=== PATIENT | male | born 1955 | race Hispanic/Latino ===

== ENCOUNTER 2017-10-14 14:05 | Emergency (ER) | payer BC ==
[2017-10-14] MEDS ORDERED: LIDOCAINE 1% MPF 5 ML VIAL ONE (14:51)
[2017-10-14 14:58] LABS: Absolute Lymphocytes (CBC) 0.9 K/uL (0.7-4.9); Absolute Monocytes 0.7 K/uL (0.1-1.3); Absolute Neutrophil 7.1 K/uL (1.8-8.0); Basophils % 0.5 % (0-1.3); Eosinophils % 0.8 % (0-4.4); Hematocrit 40.4 % (39.6-49.0); MCH 31.8 pg (27.0-35.0); MCV 92.5 fL (80-100); Monocytes % 8.2 % (3.3-12.3); RBC Red Blood Cell Count 4.37 M/uL (4.33-5.43)
[2017-10-14 15:12] LABS: BUN Blood Urea Nitrogen 12 mg/dL (7-18); Bicarbonate 26 mmol/L (21-32); Glucose Level 94 mg/dL (74-106); Potassium 3.7 mmol/L (3.5-5.1); Sodium Level 137 mmol/L (136-145)
[2017-10-14] MEDS ORDERED: SMZ./TMP. 800/160 MG TABLET ONE (17:27)
[2017-10-14] MEDS ORDERED: DOXYCYCLINE 100 MG CAP PO ONE (17:27)
--- NOTE | 2017-10-14 18:05 | ER ---
Nurse's Notes [facility] Name: Dario Harp Age: 61 yrs Sex: Male : 1955 Arrival Date: 10/14/2017 Time: 14:07 Bed 28 Private MD: BART RAMOS Diagnosis: Cutaneous abscess of buttock Presentation: 10/14 14:10 Presenting complaint: Patient states: Abscess to right upper thigh, denies fever or aj1 drainage. States that he was seen at [facility] and advised to come to the emergency room because he is diabetic. Transition of care: patient was not received from another setting of care. Onset of symptoms was October 10, 2017. Risk Assessment: Do you want to hurt yourself or someone else? Patient reports no desire to harm self or others. Initial Sepsis Screen: Does the patient meet any 2 criteria? No. Patient's initial sepsis screen is negative. Does the patient have a suspected source of infection? Yes: Skin breakdown/wound. Care prior to arrival: None. 14:10 Method Of Arrival: Ambulatory aj 14:10 Acuity: BRITTANY 4 aj1 Triage Assessment: 14:13 General: Appears in no apparent distress. comfortable, Behavior is calm, cooperative, aj1 appropriate for age. Pain: Pain currently is 5 out of 10 on a pain scale. Historical: - Allergies: 14:13 PENICILLINS; aj1 - Home Meds: 14:13 lisinopril 10 mg Oral tab 1 tab once daily [Active]; simvastatin 20 mg Oral tab 1 tab aj1 once daily [Active]; glimepiride 4 mg Oral tab 1 tab twice a day [Active]; aspirin 81 mg Oral chew 1 tab once daily [Active]; - PMHx: 14:13 Diabetes - NIDDM; Hyperlipidemia; Hypertension; aj1 - PSHx: 14:13 None; aj1 - Immunization history:: Flu vaccine status is unknown. - Social history:: Smoking status: Patient/guardian denies using tobacco. - Ebola Screening: : Patient denies travel to an Ebola-affected area in the 21 days before illness onset. Screenin:38 Abuse screen: Denies threats or abuse. Denies injuries from another. Nutritional kr2 screening: No deficits noted. Tuberculosis screening: No symptoms or risk factors identified. Fall Risk None identified. Assessment: 14:37 General: Appears in no apparent distress. comfortable, well groomed, well developed, kr2 well nourished, Behavior is calm, cooperative, appropriate for age. Pain: Complains of pain in right inner thigh Pain currently is 5 out of 10 on a pain scale. Quality of pain is described as tender, Pain began gradually, Is continuous, Alleviated by rest, Aggravated by increased activity. Neuro: Level of Consciousness is awake, alert, obeys commands, Oriented to person, place, time, situation, Appropriate for age. Cardiovascular: Capillary refill < 3 seconds in bilateral fingers Patient's skin is warm and dry. Respiratory: Airway is patent Respiratory effort is even, unlabored, Respiratory pattern is regular, symmetrical. GI: Abdomen is flat, non-distended. : No signs and/or symptoms were reported regarding the genitourinary system. EENT: Oral mucosa is moist. Derm: Skin is intact, is healthy with good turgor, Skin is pink, warm \T\ dry. Musculoskeletal: Circulation, motion, and sensation intact. 16:00 Reassessment: Patient appears in no apparent distress at this time. Patient and/or kr2 family updated on plan of care and expected duration. Pain level reassessed. Patient is alert, oriented x 3, equal unlabored respirations, skin warm/dry/pink. Patient denies pain at this time. 17:06 Reassessment: Patient appears in no apparent distress at this time. Patient and/or kr2 family updated on plan of care and expected duration. Pain level reassessed. Patient is alert, oriented x 3, equal unlabored respirations, skin warm/dry/pink. Patient states feeling better. 18:18 Reassessment: Patient appears in no apparent distress at this time. Patient and/or kr2 family updated on plan of care and expected duration. Pain level reassessed. Patient is alert, oriented x 3, equal unlabored respirations, skin warm/dry/pink. Gauze bandage intact to I and D site. Patient denies pain at this time. Patient states feeling better. Vital Signs: 14:13 BP 141 / 67; Pulse 75; Resp 18; Temp 98.9; Pulse Ox 99% on R/A; Weight 84.37 kg (R); aj1 Height 5 ft. 11 in. (180.34 cm) (R); Pain 5/10; 14:39 BP 105 / 51; Pulse 66; Resp 17; Pulse Ox 98% on R/A; kr2 16:16 BP 100 / 55; Pulse 63; Resp 18; Pulse Ox 98% on R/A; kr2 17:06 BP 110 / 60; Pulse 70; Resp 17; Pulse Ox 98% on R/A; kr2 18:19 BP 122 / 68; Pulse 66; Resp 17; Pulse Ox 99% on R/A; kr2 14:13 Body Mass Index 25.94 (84.37 kg, 180.34 cm) aj1 ED Course: 14:07 Patient arrived in ED. sb2 14:08 BART RAMOS is Private Physician. sb2 14:11 Triage completed. aj1 14:13 Arm band placed on Patient placed in an exam room. aj1 14:24 Lito Buckley PA is PHCP. [facility] 14:24 Gurmeet Doherty MD is Attending Physician. [facility] 14:25 Jasmin Young, JOHN is Primary Nurse. kr2 14:39 Patient has correct armband on for positive identification. Bed in low position. Call kr2 light in reach. Side rails up X 1. Pulse ox on. NIBP on. Door closed. Warm blanket given. Head of bed elevated. 14:45 Inserted saline lock: 20 gauge in left forearm, using aseptic technique. Blood kr2 collected. 18:04 Tino Sanchez MD is Referral Physician. [facility] 18:19 No provider procedures requiring assistance completed. IV discontinued, intact, kr2 bleeding controlled, No redness/swelling at site. Pressure dressing applied. Administered Medications: 15:54 Drug: Lidocaine (1 %) 20 ml {Note: Administered by ARNEL Gardiner.} Volume: 20 ml; kr2 Route: Infiltration; 18:20 Follow up: Response: No adverse reaction kr2 17:26 Drug: Bactrim (160 mg-800 mg (DS) 1 tablet Route: PO; kr2 18:20 Follow up: Response: No adverse reaction kr2 17:27 Drug: Doxycycline 100 mg Route: PO; kr2 18:20 Follow up: Response: No adverse reaction kr2 Outcome: 18:05 Discharge ordered by . jmm 18:19 Discharged to home ambulatory. kr2 18:19 Condition: good 18:19 Discharge instructions given to patient, Instructed on discharge instructions, follow up and referral plans. medication usage, wound care, Demonstrated understanding of instructions, follow-up care, medications, wound care, Prescriptions given X 3. 18:21 Patient left the ED. kr2 Signatures: Judy Collazo, RN RN aj1 Lito Buckley PA PA jmm Reaves, Karey, RN RN kr2 Steff Patel sb2 Corrections: (The following items were deleted from the chart) 15:54 15:54 Lidocaine (1 %) 20 ml 20 ml Infiltration 20 ml kr2 kr2 18:19 17:06 Reassessment: Patient appears in no apparent distress at this time. Patient kr2 and/or family updated on plan of care and expected duration. Pain level reassessed. Patient is alert, oriented x 3, equal unlabored respirations, skin warm/dry/pink. Patient states feeling better. kr2 18:20 18:19 Discharge instructions given to patient, Instructed on discharge instructions, kr2 follow up and referral plans. medication usage, Demonstrated understanding of instructions, follow-up care, medications, Prescriptions given X 3, kr2
--- NOTE | 2017-10-14 18:06 | EDPHYS ---
Physician Documentation [facility] Name: Dario Harp Age: 61 yrs Sex: Male : 1955 Arrival Date: 10/14/2017 Time: 14:07 Bed 28 Private MD: BART RAMOS ED Physician Gurmeet Doherty HPI: 10/14 14:35 This 61 yrs old Male presents to ER via Ambulatory with complaints of Abscess. jmm 14:35 The patient presents with an abscess of the right gluteal fold. Onset: The jmm symptoms/episode began/occurred gradually, 1 week(s) ago. Possible cause(s): unknown. Associated signs and symptoms: Pertinent negatives: fever. Modifying factors: the symptoms are alleviated by repositioning , the symptoms are aggravated by pressure. The patient has experienced a previous episode. This is a 61 year old male with a hx of dm that presents to the ED with right buttock pain which began approx 1 week ago. Patient denies fever. . Historical: - Allergies: 14:13 PENICILLINS; aj1 - Home Meds: 14:13 lisinopril 10 mg Oral tab 1 tab once daily [Active]; simvastatin 20 mg Oral tab 1 tab aj1 once daily [Active]; glimepiride 4 mg Oral tab 1 tab twice a day [Active]; aspirin 81 mg Oral chew 1 tab once daily [Active]; - PMHx: 14:13 Diabetes - NIDDM; Hyperlipidemia; Hypertension; aj1 - PSHx: 14:13 None; aj1 - Immunization history:: Flu vaccine status is unknown. - Social history:: Smoking status: Patient/guardian denies using tobacco. - Ebola Screening: : Patient denies travel to an Ebola-affected area in the 21 days before illness onset. ROS: 14:35 Constitutional: Negative for body aches, chills, fever. jmm 14:35 Skin: Positive for abscess, erythema. 14:35 Neuro: Negative for weakness. 14:35 All other systems are negative. Exam: 14:35 Head/Face: atraumatic. Cardiovascular: Regular rate and rhythm. No gallops, murmurs, jmm or rubs. Full/Equal distal pulses. Respiratory: Lungs have equal breath sounds bilaterally, clear to auscultation. 14:35 Constitutional: The patient appears in no acute distress, alert, awake. 14:35 Skin: erythema and induration noted to the right gluteal fold, the area is tender too palpation, a fluctuant mass is appreciated. 14:35 Neuro: Orientation: is normal, Mentation: is normal, Memory: is normal. 14:35 Psych: Behavior/mood is pleasant, cooperative. Vital Signs: 14:13 BP 141 / 67; Pulse 75; Resp 18; Temp 98.9; Pulse Ox 99% on R/A; Weight 84.37 kg (R); aj1 Height 5 ft. 11 in. (180.34 cm) (R); Pain 5/10; 14:39 BP 105 / 51; Pulse 66; Resp 17; Pulse Ox 98% on R/A; kr2 16:16 BP 100 / 55; Pulse 63; Resp 18; Pulse Ox 98% on R/A; kr2 17:06 BP 110 / 60; Pulse 70; Resp 17; Pulse Ox 98% on R/A; kr2 18:19 BP 122 / 68; Pulse 66; Resp 17; Pulse Ox 99% on R/A; kr2 14:13 Body Mass Index 25.94 (84.37 kg, 180.34 cm) [facility] Procedures: 18:02 I \T\ D: Incision and drainage was performed for an abscess of the right right gluteal jmm fold Prepped with Betadine, Anesthetized with 8 ml's 1% Lidocaine. Incised with #11 blade. Drained moderate amount purulent fluid. Loculations removed. Abscess cavity explored. Packed with iodoform gauze, Dressing: sterile 4x4 gauze, the patient tolerated the procedure well. MDM: 14:36 Patient medically screened. [facility] 18:02 Data reviewed: vital signs, nurses notes, lab test result(s). Counseling: I had a [facility] detailed discussion with the patient and/or guardian regarding: the historical points, exam findings, and any diagnostic results supporting the discharge/admit diagnosis, lab results, the need for outpatient follow up, to return to the emergency department if symptoms worsen or persist or if there are any questions or concerns that arise at home. 10/14 14:36 Order name: CBC with Diff; Complete Time: 15:21 [facility] 10/14 14:36 Order name: BMP; Complete Time: 15:21 [facility] 10/14 14:36 Order name: Saline Lock; Complete Time: 14:47 [facility] Administered Medications: 15:54 Drug: Lidocaine (1 %) 20 ml {Note: Administered by ARNEL Gardiner.} Volume: 20 ml; kr2 Route: Infiltration; 18:20 Follow up: Response: No adverse reaction kr2 17:26 Drug: Bactrim (160 mg-800 mg (DS) 1 tablet Route: PO; kr2 18:20 Follow up: Response: No adverse reaction kr2 17:27 Drug: Doxycycline 100 mg Route: PO; kr2 18:20 Follow up: Response: No adverse reaction kr2 Disposition: 18:50 Co-signature as Attending Physician, Gurmeet Doherty MD. rn Disposition: 10/14/17 18:05 Discharged to Home. Impression: Cutaneous abscess of buttock. - Condition is Stable. - Discharge Instructions: Abscess, Incision and Drainage, Sitz Bath. - Prescriptions for Ultram 50 mg Oral Tablet - take 1 tablet by ORAL route every 6 hours As needed; 20 tablet. Doxycycline Hyclate 100 mg Oral Tablet - take 1 tablet by ORAL route every 12 hours; 20 tablet. Bactrim DS 800- 160 mg Oral Tablet - take 1 tablet by ORAL route every 12 hours for 10 days; 20 tablet. - Medication Reconciliation Form, Thank You Letter, Antibiotic Education, Prescription Opioid Use form. - Follow up: Tino Sanchez MD; When: 2 - 3 days; Reason: Continuance of care. Signatures: Dispatcher [employer] EDJudy Adler RN RN Lito Ma PA PA [facility] Gurmeet Doherty MD MD rn Reaves, Karey, RN RN kr2 Corrections: (The following items were deleted from the chart) 18:17 18:11 This 61 yrs old Male presents to ER via Ambulatory with complaints of jmm Abscess. [facility] 18:21 18:05 10/14/2017 18:05 Discharged to Home. Impression: Cutaneous abscess of buttock. kr2 Condition is Stable. Forms are Medication Reconciliation Form, Thank You Letter, Antibiotic Education, Prescription Opioid Use. Follow up: Tino Sanchez; When: 2 - 3 days; Reason: Continuance of care. [facility]
== END 2017-10-14 18:21 | disposition home or self-care (01) ==
LOC: ER 14:05
PROC: 0J990ZZ Drainage of Buttock Subcutaneous Tissue and Fascia, Open Approach (ICD-10-PCS; principal; 2017-10-14)
DX: L02.31 Cutaneous abscess of buttock (principal); Z88.0 Allergy status to penicillin; E11.9 Type 2 diabetes mellitus without complications; Z79.84 Long term (current) use of oral hypoglycemic drugs; E78.5 Hyperlipidemia, unspecified; I10 Essential (primary) hypertension
CPT/HCPCS: 36415; 80048; 85025; 99284

== ENCOUNTER 2021-09-12 06:59 | Emergency (ER) | payer OTHER ==
--- OUTSIDE RECORDS SUMMARY | 2021-09-12 07:02 | XMS REPORT | Continuity of Care Document ---
:1955 Author Organization [facility] Address [address] [place] [address] Care Team Providers Name Role Phone Donato [place] Attending Clinician Unavailable Milllorenzo Attending Clinician Unavailable Problems This patient has no known problems. Allergies, Adverse Reactions, Alerts Allergy Allergy Status Severity Reaction(s) Onset Inactive Treating Comm ents Source Name Type Date Date Clinician PCN Adverse Active Hives Common Reaction [facility] Medications Ordered Filled Start Stop Current Ordering Indication Dosage Frequency Signature Comments Components Source Medication Medication Date Date Medication? Clinician (SIG) Name Name Simvastatin Simvastatin Yes Meenu 1 tablet Common Millender in the [facility] Glimepiride Glimepiride Yes Meenu 1 tablet Common Millender [facility] Fluocinonid Fluocinonid Yes Meenu not Common e e Millender defined [facility] Fish Oil Fish Oil Yes Meenu 1 capsule C ommon Millender [facility] Claritin Claritin Yes Meenu 1 tablet Co mmon Millender [facility] Lisinopril Lisinopril Yes Meenu 1 tablet Common Millender [facility] Ibuprofen Ibuprofen Yes Meenu 1 tablet Common Millender with food Spiri t or milk as - [facility] needed [facility] Multiple Multiple Yes Meenu 1 tablet Co mmon Vitamin Vitamin Millender Spir it [facility] Lisinopril Lisinopril Yes Meenu TAKE 1 Common Millender TABLET BY Spiri t MOUTH - [facility] DAILY [facility] Simvastatin Simvastatin Yes Meenu 1 tablet Common Millender in the [facility] evening [facility] Ventolin Ventolin Yes Meeun 2 puffs as Common HFA HFA Millender needed [facility] Aspirin Aspirin Yes Meenu 1 tablet Comm on Adult Low Adult Low Millender Spirit Strength Strength [facility] Immunizations Ordered Immunization Filled Immunization Date Status Commen ts Source Name Name Flucelvax - single Flucelvax - single 2019-02-06 Completed Common Spirit dose syringe dose syringe 00:00:00 - [facility] Procedures This patient has no known procedures. Encounters Start End Encounter Admission Attending Care Care Encounter Source Date/Time Date/Time Type Type Clinicians Facility Department ID 2021-09-03 Outpatient [facility], [facility] [id number] Common 10:02:03 Donato [facility] 2021-08-20 Outpatient Nor[place], [facility] [id number] Common 09:55:00 Donato [facility] 2021-05-12 Outpatient Norwood, [facility] [id number] Common 14:36:58 Donato [facility] 2021-05-12 Outpatient Norwood, [facility] [id number] Common 12:42:02 Donato [facility] 2021-05-12 Outpatient Norwood, [facility] [id number] Common 12:31:04 Donato [facility] 2021-05-12 Outpatient Norwood, [facility] [id number] Common 12:30:21 Donato [facility] 2021-05-12 Outpatient Norwood, [facility] [id number] Common 12:28:36 Donato [facility] 2021-05-12 Outpatient [place], [facility] [id number] Common 12:18:43 Donato [id number] [facility] 2021-05-12 Outpatient [place], [facility] [id number] Common 12:09:13 Donato [id number] [facility] 2021-05-12 Outpatient [place], [facility] [id number] Common 12:08:56 [facility] [address] [facility] 2021-05-12 Outpatient [place], [facility] [id number] Common 12:04:33 [facility] [address] [facility] 2021-05-12 Outpatient Millender, [facility] [id number] Common 11:40:02 Meenu [id number] [facility] 2021-05-12 Outpatient Millender, [facility] [id number] 11:39:20 Meenu [id number] [facility] 2021-09-02 2021-09-02 ambulatory [facility] [id number] Common 00:00:00 00:00:00 [facility] 2021-09-02 2021-09-02 ambulatory [facility] [id number] Common 00:00:00 00:00:00 [facility] 2021-08-19 2021-08-19 ambulatory [facility] [id number] Common 00:00:00 00:00:00 [facility] 2021-05-07 2021-05-07 ambulatory [facility] [id number] Common 00:00:00 00:00:00 [facility] 2021-05-05 2021-05-05 ambulatory [facility] [id number] Common 00:00:00 00:00:00 [facility] 2021-01-27 2021-01-27 Outpatient [facility] [id number] Common 00:00:00 00:00:00 [facility] 2020-10-21 2020-10-21 Outpatient [facility] [id number] Common 00:00:00 00:00:00 [facility] 2020-07-03 2020-07-03 Outpatient [facility] [id number] Common 00:00:00 00:00:00 [facility] 2020-07-03 2020-07-03 Outpatient [facility] [id number] Common 00:00:00 00:00:00 [facility] 2020-03-17 2020-03-17 Outpatient [facility] [id number] Common 00:00:00 00:00:00 [facility] 2020-03-17 2020-03-17 Outpatient [facility] [id number] Common 00:00:00 00:00:00 [facility] 2020-01-23 2020-01-23 Outpatient [facility] [id number] Common 00:00:00 00:00:00 [facility] 2019-09-13 2019-09-13 [facility] [id number] Common 08:52:00 08:52:00 [facility] [address] [facility] 2019-09-13 2019-09-13 [facility] [id number] Common 08:00:00 08:00:00 [address] [facility] [address] [facility] it Road [facility] 2019-02-06 2019-02-06 [facility] [id number] Common 21:35:00 21:35:[address] [facility] [address] [facility] it Road [facility] 2019-02-06 2019-02-06 [facility] [id number] Common 09:00:00 09:00:[address] [facility] [address] [facility] it Road [facility] 2018-07-31 2018-07-31 [facility] [id number] Common 11:33:00 11:33:00 t [facility] [address] [facility] [address] Road [facility] 2018-07-24 2018-07-24 [facility] [id number] Common 09:24:00 09:24:00 [address] [facility] [address] [facility] it Road [facility] 2018-01-16 2018-01-16 [facility] [id number] Common 15:28:00 15:28:[address] [facility] 2017-12-25 2017-12-25 [facility] [id number] Common 10:25:00 10:25:[address] [facility] 2017-12-19 2017-12-19 [facility] [id number] Common 16:00:00 16:00:[address] [facility] [address] [facility] 2017-10-16 2017-10-16 [facility] [id number] Common 13:11:00 13:11:[address] [facility] [address] [facility] 2017-08-22 2017-08-22 [facility] [id number] Common 10:51:00 10:51:[address] [facility] 2017-07-20 2017-07-20 [facility] [id number] Common 16:15:00 16:15:[address] [facility] [address] [facility] Results This patient has no known results.
[2021-09-12 07:54] LABS: Absolute Lymphocytes (CBC) 1.1 K/uL (0.7-4.9); Lymphocytes % 26.7 % (15.3-44.8); MPV 7.2 fL (7.6-11.3); RBC Red Blood Cell Count 4.75 M/uL (4.33-5.43)
[2021-09-12 08:04] LABS: Protime INR 1.05
[2021-09-12 08:07] LABS: Potassium 4.1 mmol/L (3.5-5.1)
--- NOTE | 2021-09-12 08:07 | RAD REPORT ---
EXAM DESCRIPTION: CT - Head Brain Wo Cont - 09/12/2021 7:52 am CLINICAL HISTORY: Paresthesia Headache, drowsiness COMPARISON: No comparisons TECHNIQUE: All CT scans are performed using dose optimization technique as appropriate and may inclu de automated exposure control or mA/KV adjustment according to patient size. FINDINGS: No intracranial hemorrhage, hydrocephalus or extra-axial fluid collection.No areas of brai n edema or evidence of midline shift. The paranasal sinuses and mastoids are clear. The calvarium is intact. IMPRESSION: No acute intracranial abnormality.
--- NOTE | 2021-09-12 09:36 | ER ---
Nurse's Notes [facility] Name: Dario Harp Age: 65 yrs Sex: Male : 1955 Arrival Date: 09/12/2021 Time: 07:01 Bed 7 Private MD: Diagnosis: Headache;Radiculopathy, cervical region;Paresthesia of skin;Pain in right hand Presentation: 09/12 07:15 Chief complaint: Patient states: has had headaches for past two weeks , was told his BP iw was high and they changed his medicine from lisinopril 10 mg to lisinopril/HCTZ 20/12.5 , is still having a mild headache and also has had numbness to his right index and middle finger since Monday , feels a pain in palm of his hand when he applies pressure. Coronavirus screen: At this time, the client does not indicate any symptoms associated with coronavirus-19. Ebola Screen: Patient negative for fever greater than or equal to 101.5 degrees Fahrenheit, and additional compatible Ebola Virus Disease symptoms Patient denies exposure to infectious person. Patient denies travel to an Ebola-affected area in the 21 days before illness onset. No symptoms or risks identified at this time. Risk Assessment: Do you want to hurt yourself or someone else? Patient reports no desire to harm self or others. 07:15 Method Of Arrival: Ambulatory iw 07:15 Acuity: BRITTANY 3 iw 07:50 Initial Sepsis Screen: Does the patient meet any 2 criteria? No. Patient's initial jd3 sepsis screen is negative. Does the patient have a suspected source of infection? No. Patient's initial sepsis screen is negative. Onset of symptoms was September 08, 2021. Triage Assessment: 07:18 Headache History: Denies prior headaches. jd3 07:18 General: Appears in no apparent distress. comfortable, Behavior is calm, cooperative, jd3 appropriate for age. Pain: Pain currently is 0 out of 10 on a pain scale. Pain began 2-3 days ago. Also complains of no other associated symptoms. Historical: - Allergies: 07:18 PENICILLINS; iw - Home Meds: 07:18 lisinopril-hydrochlorothiazide 20-12.5 mg oral tab 1 tab once daily [Active]; iw simvastatin 20 mg Oral tab 1 tab once daily [Active]; glimepiride 4 mg Oral tab 1 tab once daily [Active]; - PMHx: 07:18 Diabetes - NIDDM; Hyperlipidemia; Hypertension; iw - Immunization history:: Adult Immunizations up to date. - Social history:: Smoking status: unknown. Screenin:17 Abuse screen: Denies threats or abuse. Nutritional screening: No deficits noted. jd3 Tuberculosis screening: No symptoms or risk factors identified. Fall Risk Ambulatory Aid- None/Bed Rest/Nurse Assist (0 pts). Gait- Normal/Bed Rest/Wheelchair (0 pts) Mental Status- Oriented to own ability (0 pts). Total Rendon Fall Scale indicates No Risk (0-24 pts). 07:49 VAN Screening: Arm Drift: Patient shows no arm weakness. Patient is VAN negative. The jd3 patient has not been NPO before screening. The patient is currently on the following diet: regular The patient is alert, able to follow commands. The patient does not exhibit slurred or garbled speech The patient is not exhibiting difficulty speaking. The patient does not exhibit difficulty understanding words. The patient is able to swallow own secretions with no drooling or need for suction. Patient tolerated one teaspoon of water. No drooling, immediate coughing, gurgling, or clearing of the throat was noted. The patient tolerated 90mL of water. No drooling, immediate coughing, gurgling, or clearing of the throat was noted. The patient passed the bedside swallow screening. Oral medications may be given as ordered. Contact Physician for further diet orders. Provider notified of bedside swallow screening results: Brannon Carey MD. Assessment: 07:16 General: Appears in no apparent distress. comfortable, Behavior is calm, cooperative, jd3 appropriate for age. Pain: Denies pain. Neuro: Moreira Agitation-Sedation Scale (RASS): 0 - Alert and Calm Level of Consciousness is awake, alert, obeys commands, Oriented to person, place, time, situation, Aircraft Armament Mechanic are equal bilaterally Moves all extremities. Full function Gait is steady, Speech is normal, Facial symmetry appears normal, Pupils are PERRLA, Intact Reports numbness in right ring finger, right middle finger and right index finger and tingling since Monday. Cardiovascular: Denies chest pain, Capillary refill < 3 seconds Patient's skin is warm and dry. Rhythm is regular. Respiratory: Airway is patent Respiratory effort is even, unlabored, Respiratory pattern is regular, symmetrical, Denies cough, shortness of breath. GI: No signs and/or symptoms were reported involving the gastrointestinal system. : No signs and/or symptoms were reported regarding the genitourinary system. EENT: No signs and/or symptoms were reported regarding the EENT system. Derm: Skin is intact, Skin is dry, Skin is normal, Skin temperature is warm. Musculoskeletal: Circulation, motion, and sensation intact. Range of motion: intact in all extremities. 08:03 Reassessment: Patient appears in no apparent distress at this time. No changes from jd3 previously documented assessment. Patient and/or family updated on plan of care and expected duration. Pain level reassessed. Patient is alert, oriented x 3, equal unlabored respirations, skin warm/dry/pink. 09:30 Reassessment: Patient appears in no apparent distress at this time. Patient and/or jd3 family updated on plan of care and expected duration. Pain level reassessed. Patient is alert, oriented x 3, equal unlabored respirations, skin warm/dry/pink. Vital Signs: 07:19 BP 166 / 83; Pulse 67; Resp 16; Pulse Ox 98% on R/A; iw 08:02 BP 145 / 71; Pulse 56; Resp 18 S; Pulse Ox 98% on R/A; jd3 09:30 BP 150 / 70; Pulse 63; Resp 20 S; Pulse Ox 97% on R/A; jd3 ED Course: 07:01 Patient arrived in ED. bp1 07:08 Brannon Carey MD is Attending Physician. kdr 07:09 Karl Lange, RN is Primary Nurse. jl7 07:15 Amadou Rogers, JOHN is Primary Nurse. jd3 07:17 Triage completed. iw 07:17 Patient has correct armband on for positive identification. Bed in low position. Call jd3 light in reach. Side rails up X 1. Adult w/ patient. Client placed on continuous cardiac and pulse oximetry monitoring. NIBP monitoring applied. vehicle monitor technician on. Pulse ox on. NIBP on. 07:18 Arm band placed on. jd3 07:49 Inserted saline lock: 20 gauge in right forearm, using aseptic technique. Blood jd3 collected. 07:52 Head Brain Wo Cont In Process Unspecified. EDMS 08:01 EKG done, by ED staff, reviewed by Brannon Carey MD. jd3 10:20 No provider procedures requiring assistance completed. IV discontinued, intact, jd3 bleeding controlled, No redness/swelling at site. Pressure dressing applied. Administered Medications: 10:00 Drug: Ibuprofen 600 mg Route: PO; jd3 10:20 Follow up: Response: No adverse reaction jd3 Medication: 07:17 VIS not applicable for this client. jd3 Outcome: 09:35 Discharge ordered by . kdr 10:20 Discharged to home ambulatory, with family. jd3 10:20 Condition: stable 10:20 Discharge instructions given to patient, family, Instructed on discharge instructions, follow up and referral plans. Demonstrated understanding of instructions, follow-up care. 10:20 Patient left the ED. jd3 Signatures: Dispatcher [employer] EDPA Brannon Carey MD MD kdr Pearl England, RN RN iw Karl Lange RN RN jl7 Amadou Rogers RN RN jd3 Neida Barnes bp1
--- NOTE | 2021-09-12 09:36 | EDPHYS ---
Physician Documentation [facility] Name: Dario Harp Age: 65 yrs Sex: Male : 1955 Arrival Date: 09/12/2021 Time: 07:01 Bed 7 Private MD: ED Physician Brannon Carey HPI: 09/12 08:13 This 65 yrs old Male presents to ER via Ambulatory with complaints of kdr Headache, Numbness Of Hand. 08:13 Patient states that he has had a headache for the past 2 weeks. The headache has been kdr frontal. He felt it may be related to his sinuses. He is also had increased blood pressure in the last few days. His physician had him on lisinopril initially but has changed his medication to include the hydrochlorothiazide. Despite this change in his medication, he still has had increased blood pressure and mild headache. Also complains of numbness to the middle finger on his right hand. It does not involve either finger on either side. Finally he has pain base of his palm with pressure with to a focal spot. Otherwise he has no other complaints or dysfunction. Onset: The symptoms/episode began/occurred suddenly, this morning. Severity of symptoms: At their worst the symptoms were very mild in the emergency department the symptoms are unchanged. The patient has not experienced similar symptoms in the past. The patient has not recently seen a physician. Historical: - Allergies: 07:18 PENICILLINS; iw - Home Meds: 07:18 lisinopril-hydrochlorothiazide 20-12.5 mg oral tab 1 tab once daily [Active]; iw simvastatin 20 mg Oral tab 1 tab once daily [Active]; glimepiride 4 mg Oral tab 1 tab once daily [Active]; - PMHx: 07:18 Diabetes - NIDDM; Hyperlipidemia; Hypertension; iw - Immunization history:: Adult Immunizations up to date. - Social history:: Smoking status: unknown. ROS: 08:13 Constitutional: Negative for fever, chills, and weight loss, Eyes: Negative for injury, kdr pain, redness, and discharge, ENT: Negative for injury, pain, and discharge, Neck: Negative for injury, pain, and swelling, Cardiovascular: Negative for chest pain, palpitations, and edema, Respiratory: Negative for shortness of breath, cough, wheezing, and pleuritic chest pain, Abdomen/GI: Negative for abdominal pain, nausea, vomiting, diarrhea, and constipation, Back: Negative for injury and pain, : Negative for injury, bleeding, discharge, and swelling, MS/Extremity: Negative for injury and deformity, Skin: Negative for injury, rash, and discoloration, Psych: Negative for depression, anxiety, suicide ideation, homicidal ideation, and hallucinations, Allergy/Immunology: Negative for hives, rash, and allergies, Endocrine: Negative for neck swelling, polydipsia, polyuria, polyphagia, and marked weight changes, Hematologic/Lymphatic: Negative for swollen nodes, abnormal bleeding, and unusual bruising. 08:13 MS/extremity: Positive for decreased range of motion, swelling, tenderness, of the heel of right hand. 08:13 Neuro: Positive for headache, of the forehead, left frontal area and right frontal area. Exam: 08:13 Constitutional: This is a well developed, well nourished patient who is awake, alert, kdr and in no acute distress. Head/Face: Normocephalic, atraumatic. Eyes: Pupils equal round and reactive to light, extra-ocular motions intact. Lids and lashes normal. Conjunctiva and sclera are non-icteric and not injected. Cornea within normal limits. Periorbital areas with no swelling, redness, or edema. Neck: Trachea midline, no thyromegaly or masses palpated, and no cervical lymphadenopathy. Supple, full range of motion without nuchal rigidity, or vertebral point tenderness. No Meningismus. Chest/axilla: Normal chest wall appearance and motion. Nontender with no deformity. No lesions are appreciated. Cardiovascular: Regular rate and rhythm with a normal S1 and S2. No gallops, murmurs, or rubs. Normal PMI, no JVD. No pulse deficits. Respiratory: Lungs have equal breath sounds bilaterally, clear to auscultation and percussion. No rales, rhonchi or wheezes noted. No increased work of breathing, no retractions or nasal flaring. Abdomen/GI: Soft, non-tender, with normal bowel sounds. No distension or tympany. No guarding or rebound. No evidence of tenderness throughout. Back: No spinal tenderness. No costovertebral tenderness. Full range of motion. Skin: Warm, dry with normal turgor. Normal color with no rashes, no lesions, and no evidence of cellulitis. MS/ Extremity: Pulses equal, no cyanosis. Neurovascular intact. Full, normal range of motion. Neuro: Awake and alert, GCS 15, oriented to person, place, time, and situation. Cranial nerves II-XII grossly intact. Motor strength 5/5 in all extremities. Sensory grossly intact. Cerebellar exam normal. Normal gait. Psych: Awake, alert, with orientation to person, place and time. Behavior, mood, and affect are within normal limits. Vital Signs: 07:19 BP 166 / 83; Pulse 67; Resp 16; Pulse Ox 98% on R/A; iw 08:02 BP 145 / 71; Pulse 56; Resp 18 S; Pulse Ox 98% on R/A; jd3 09:30 BP 150 / 70; Pulse 63; Resp 20 S; Pulse Ox 97% on R/A; jd3 MDM: 08:13 Data reviewed: vital signs, nurses notes, lab test result(s), EKG, radiologic studies. kdr Counseling: I had a detailed discussion with the patient and/or guardian regarding: the historical points, exam findings, and any diagnostic results supporting the discharge/admit diagnosis, lab results, radiology results. 09:35 Patient medically screened. kdr 09/12 07:35 Order name: Basic Metabolic Panel; Complete Time: 08:36 kdr 09/12 07:35 Order name: CBC with Diff; Complete Time: 08:36 kdr 09/12 07:35 Order name: Protime (+inr); Complete Time: 08:36 kdr 09/12 07:35 Order name: Ptt, Activated; Complete Time: 08:36 kdr 09/12 07:52 Order name: Head Brain Wo Cont; Complete Time: 08:36 EDMS 09/12 07:35 Order name: EKG; Complete Time: 07:36 kdr 09/12 07:35 Order name: Accucheck; Complete Time: 07:49 kdr 09/12 07:35 Order name: Cardiac monitoring; Complete Time: 07:39 kdr 09/12 07:35 Order name: EKG - Nurse/Tech; Complete Time: 07:50 kdr 09/12 07:35 Order name: IV Saline Lock; Complete Time: 07:49 kdr 09/12 07:35 Order name: Labs collected and sent; Complete Time: 07:49 kdr 09/12 07:35 Order name: NPO; Complete Time: 07:39 kdr 09/12 07:35 Order name: O2 Per Protocol; Complete Time: 07:39 kdr 09/12 07:35 Order name: O2 Sat Monitoring; Complete Time: 07:39 kdr 09/12 07:35 Order name: Stroke Swallow Screen; Complete Time: 07:40 kdr Administered Medications: 10:00 Drug: Ibuprofen 600 mg Route: PO; jd3 10:20 Follow up: Response: No adverse reaction jd3 Disposition Summary: 09/12/21 09:35 Discharge Ordered Location: Home kdr Problem: an ongoing problem kdr Symptoms: have improved kdr Condition: Stable kdr Diagnosis - Headache kdr - Radiculopathy, cervical region kdr - Paresthesia of skin kdr - Pain in right hand kdr Followup: kdr - With: Private Physician - When: 2 - 3 days - Reason: If symptoms return, Further diagnostic work-up, Recheck today's complaints, Continuance of care, Re-evaluation by your physician Discharge Instructions: - Discharge Summary Sheet kdr - Cervical Radiculopathy kdr - General Headache Without Cause kdr - Musculoskeletal Pain kdr - Paresthesia kdr - Pinched Nerve kdr - Peripheral Neuropathy kdr - Paresthesia, [id number] kdr Forms: - Medication Reconciliation Form kdr - Thank You Letter kdr Signatures: Dispatcher [employer] EDMS Brannon Carey MD MD kdr Pearl England RN RN iw Amadou Rogers RN RN jd3 Corrections: (The following items were deleted from the chart) 07:52 07:40 CT-STROKE BRAIN W/O CONTRAST+CT.RAD.BRZ ordered. EDMS EDMS
[2021-09-12] MEDS ORDERED: IBUPROFEN 200 MG TAB PO ONE (10:06)
[2021-09-12] MEDS ORDERED: IBUPROFEN 400 MG TAB ONE (10:06)
[2021-09-12 11:20] VITALS: BP 150/70; O2SAT 97
--- NOTE | 2021-09-14 12:22 | EKG ---
Test Date: 2021-09-12 Test Time: 07:54:43 Opal Miner: JOSE MEASUREMENT RESULTS: Intervals: Rate: 54 IA: 148 QRSD: 84 QT: 410 QTc: 388 [place]: P: 31 IA: 148 QRS: 21 T: 41 INTERPRETIVE STATEMENTS: Sinus bradycardia Otherwise normal ECG Compared to ECG 03/07/2013 07:45:36 No significant changes Electronically Signed On 09-14-21 12:17:08 CDT by Julito Phipps
== END 2021-09-12 10:20 | disposition home or self-care (01) ==
LOC: ER 06:59
DX: R51.9 Headache, unspecified (principal); M54.12 Radiculopathy, cervical region; R20.2 Paresthesia of skin; M79.641 Pain in right hand; Z88.0 Allergy status to penicillin; E11.9 Type 2 diabetes mellitus without complications; E78.5 Hyperlipidemia, unspecified; I10 Essential (primary) hypertension
CPT/HCPCS: 36415; 70450; 80048; 85025; 85610; 85730; 93005; 99284

== ENCOUNTER 2023-02-03 08:01 | Day surgery (SDC) | payer OTHER ==
--- NOTE | 2023-01-26 12:27 | EKG ---
Test Date: 2023-01-26 Test Time: 10:43:43 Staff Analyst: DERRELL MEASUREMENT RESULTS: Intervals: Rate: 52 CA: 162 QRSD: 90 QT: 408 QTc: 379 [place]: P: 50 CA: 162 QRS: 17 T: 52 INTERPRETIVE STATEMENTS: Sinus bradycardia Otherwise normal ECG Compared to ECG 09/12/2021 07:54:43 No significant changes Electronically Signed On 01-26-23 12:26:25 CDT by Ryan Cazares
[2023-02-03] MEDS ORDERED: FENTANYL CITR 100 MCG/2 ML ONE (08:21)
[2023-02-03] MEDS ORDERED: dexAMETHasone 10 MG/ML VIAL ONE (08:21)
[2023-02-03] MEDS ORDERED: LIDOCAINE 2% MPF 5 ML VIAL ONE (08:21)
[2023-02-03] MEDS ORDERED: propofoL 200 MG/20 ML VIAL IV ONE (08:21)
[2023-02-03] MEDS: OXYMETAZOLINE HCL 0.05% 15ML NAS ONE ×4 (08:27→08:59)
[2023-02-03] MEDS ORDERED: NA CHLORIDE 0.9% 1,000 ML ONE (08:29)
[2023-02-03] MEDS ORDERED: LIDOCAINE HCL/EPINEPHRINE 20 ML MDV ONE (08:50)
--- NOTE | 2023-02-03 09:24 | P.OP ---
Commissary Manager: NONE,NONE Preoperative diagnosis: right conductiove hearing loss, adhesive middle ear disease Postoperative diagnosis: same Primary procedure: right tympanostomy tube placement Secondary procedure: nasal endoscopy Anesthesia: general Estimated blood loss: nil Specimen: none Findings: right serous middle ear fluid, adhesive middle ear disease Operative Technique: The patient was brought to the operating room and placed under general anesthesia via laryngeal mask airway. The left ear was examined under an operating microscope with assistance from an ear speculum. A small amount of cerumen was removed using a wire loop. The left ear canal and eardrum appeared normal with no significant retraction or evidence of middle ear fluid. No procedure was performed on the left ear. The right ear was examined under an operating microscope with assistance of an ear speculum, small amount of cerumen was removed using a wire loop and alligator forcep. The right ear was significantly retracted with approximately 25 to 30% of the pars tensa adherent to the promontory. There was also significant retraction of the pars flaccida but no evidence of debris or granulation within the retraction pocket. More superiorly within the middle ear, there was an leon appearing serous fluid. A myringotomy knife was used to make an incision just anterior to the pars tensa retraction pocket. Serous fluid was suctioned from the middle ear. The Fuchs needle was used to gently elevate inferiorly through the incision but the eardrum was somewhat atrophic and densely adhered and not easily elevated. A Cleaning T-tube was positioned across the incision with an alligator forcep and Fuchs pick. A small amount of fluid was suctioned through the lumen. This portion of the procedure was concluded. The 0 degree rigid endoscope was connected and used to perform bilateral nasal endoscopy. The right nasal cavity demonstrated a midline septum with normal- appearing inferior turbinate, inferior meatus with no significant drainage. The middle turbinate was normal in form and the middle meatus was free from any evidence of polyps, significant nasal drainage or pus. The superior turbinate and sphenoethmoid recess likewise appeared normal. The mucosa of the right eustachian tube opening was significantly edematous and the eustachian tube opening appeared completely collapsed. There was no evidence of any abnormal appearing tissue, tumor, ulceration or crusting noted along the roof or posterior wall of the nasopharynx. The left nasal cavity was examined in a similar fashion. There were no significant abnormalities noted of the inferior turbinate, inferior meatus, middle turbinate, middle meatus, superior turbinate or sphenoethmoid recess. The left eustachian tube opening was likewise significantly edematous with complete collapse of the opening but no evidence of mucosal mass, tumor, ulceration, crusting or other significant abnormality. No biopsy was indicated. The scope was withdrawn and the patient was returned to care of anesthesia for awakening extubation in the operating room which proceeded without difficulty. Complications: None Implants: right Chago's T tube Fluids & blood products: Crystalloid, see anesthesia record Transferred to: Recovery Room Condition: Fair
[2023-02-03 10:51] VITALS: BP 137/63; TEMP 97; O2SAT 99
== END 2023-02-03 10:30 | disposition home or self-care (01) ==
LOC: OR 08:01
PROVIDERS: ATTEND Otolaryngology
PROC: 0CJY8ZZ Inspection of Mouth and Throat, Via Natural or Artificial Opening Endoscopic (ICD-10-PCS; 2023-02-03)
PROC: 099570Z Drainage of Right Middle Ear with Drainage Device, Via Natural or Artificial Opening (ICD-10-PCS; principal; 2023-02-03 09:30)
DX: H74.11 Adhesive right middle ear disease (principal); H65.01 Acute serous otitis media, right ear; H90.2 Conductive hearing loss, unspecified; H68.021 Chronic Eustachian salpingitis, right ear
CPT/HCPCS: 93005; 82947 ×2; 69436; 31235; J2704; J2001; J3010; J1100; J7030

== ENCOUNTER 2024-06-21 09:12 | Day surgery (SDC) | payer OTHER ==
[2024-06-19 13:44] LABS: Anion Gap 6.9 mEq/L (5.0-15.0); Potassium 3.9 mEq/L (3.5-5.1)
[2024-06-19 13:55] LABS: Absolute Eosinophils 0.1 K/uL (0-0.5); Absolute Lymphocytes (CBC) 1.2 K/uL (0.7-4.9); Absolute Monocytes 0.4 K/uL (0.1-1.3); Absolute Neutrophil 3.6 K/uL (1.8-8.0); Basophils % 0.9 % (0-1.3); Eosinophils % 1.5 % (0-4.4); Hematocrit 40.8 % (39.6-49.0); Hemoglobin 14.2 g/dL (13.6-17.9); Lymphocytes % 22.4 % (15.3-44.8); MCH 32.5 pg (27.0-35.0); MCHC 34.8 g/dL (32.0-36.0); MCV 93.5 fL (80-100); MPV 7.8 fL (7.6-11.3); Monocytes % 7.3 % (3.3-12.3); Neutrophils % 67.9 % (41.7-73.7); Nucleated Red Blood Cells % 0.1 % (0-0); Platelets 182 thou/uL (152-406); RBC Red Blood Cell Count 4.36 M/uL (4.33-5.43); Red Cell Distribution Width 13.3 % (12.1-15.2)
[2024-06-21] MEDS: NA CHLORIDE 0.9% 1,000 ML ONE (09:45)
[2024-06-21] MEDS: OXYMETAZOLINE HCL 0.05% 30ML NAS ONE ×2 (11:21→14:00)
[2024-06-21] MEDS ORDERED: OFLOXACIN OPH 0.3%-5 ML BTL ONE (13:19)
[2024-06-21] MEDS ORDERED: ONDANSETRON 4 MG/2 ML VIAL ONE (13:25)
[2024-06-21] MEDS ORDERED: propofoL 200 MG/20 ML VIAL IV ONE (13:25)
[2024-06-21] MEDS ORDERED: LIDOCAINE 2% MPF 5 ML VIAL ONE (13:25)
[2024-06-21] MEDS ORDERED: dexAMETHasone 10 MG/ML VIAL ONE (13:25)
[2024-06-21] MEDS ORDERED: FENTANYL CITR 100 MCG/2 ML ONE (13:25)
[2024-06-21] MEDS ORDERED: KETOROLAC 30 MG/ML INJ ONE (13:25)
[2024-06-21] MEDS ORDERED: MIDAZOLAM HCL 2 MG/2 ML INJ ONE (13:25)
--- NOTE | 2024-06-21 14:31 | P.OP ---
Concrete Tester: NONE,NONE Preoperative diagnosis: Right chronic recurrent serous otitis media; mixed hearing loss right ear Postoperative diagnosis: Same Primary procedure: Right tympanostomy tube under general anesthesia Secondary procedure: Nasal endoscopy with right eustachian tube balloon dilation Anesthesia: General Via LMA Estimated blood loss: None Specimen: None Findings: Right TM retraction, serous middle ear fluid. Generalized erythema of CREATIVE DIRECTOR Operative Technique: The patient was brought to the operating and placed under general anesthesia via laryngeal mask airway. The right ear was examined under an operating microscope and small amount of cerumen was removed with an alligator forcep. A ear speculum was used to aid visualization. The tympanic membrane appeared mildly scarred and atrophic and retracted particularly in the anterior and posterior inferior quadrants with serous leon fluid in the middle ear. A radial incision was made in the anterior-inferior quadrant and fluid was suctioned from the middle ear space. A Cleaning T-tube was positioned across the incision using an alligator forcep. Blood and additional serous fluid were suctioned through the tube. The tube appeared to be well-seated and this portion of the procedure was concluded. A 0 degree endoscope was used to perform a bilateral nasal endoscopy. The patient was noted to have a mild inferior right sided septal spur which was not significantly impinging on access to the nasopharynx. The inferior and middle turbinates were normal bilaterally. The eustachian tube openings appeared significantly edematous bilaterally. The posterior nasopharyngeal wall and roof appeared to be significantly erythematous but there was no sign of ulceration or mucosal exophytic masses. The fossa of Rosenmuller were somewhat obscured. There was a small bluish pigmentation on the right posterior pharyngeal wall. Using the Aera balloon dilation system, the catheter was advanced under 30 degree rigid endoscopic guidance through the nasal cavity and into the nasopharynx. The tip of the balloon was carefully advanced into the opening of the eustachian tube and advanced without resistance or pressure. The balloon was then inflated to 2 sarahi of pressure and appeared well-seated with no evidence of immediate complication. The pressure was then increased to 8 and then 10 sarahi of pressure. The balloon was held in place for 2 minutes and then deflated and carefully withdrawn. After withdrawal there was a very small amount of blood at the opening of the right eustachian tube but no significant bleeding was noted. The procedure was concluded and the patient was returned to anesthesia for awakening and transportation to the recovery room. On postoperative review of the patient's prior records the overall degree of erythema was more traumatic than prior imaging and the bluish mucosal discoloration was not present at the time of his prior exam in January 2023. Further consideration of this finding will be undertaken in the postoperative counseling. Complications: None Implants: Cleaning T tube, right ear Fluids & blood products: See anesthesia record Transferred to: Recovery Room Condition: Good
[2024-06-21 14:39] VITALS: TEMP 97
[2024-06-21] MEDS: IBUPROFEN 400 MG TAB ONE (15:18)
[2024-06-21 15:44] VITALS: BP 154/66; O2SAT 99
== END 2024-06-21 15:43 | disposition home or self-care (01) ==
LOC: OR 09:12
PROVIDERS: ATTEND Otolaryngology
PROC: 099570Z Drainage of Right Middle Ear with Drainage Device, Via Natural or Artificial Opening (ICD-10-PCS; principal; 2024-06-21 11:15)
PROC: 097F7ZZ Dilation of Right Eustachian Tube, Via Natural or Artificial Opening (ICD-10-PCS; 2024-06-21 11:15)
DX: H68.021 Chronic Eustachian salpingitis, right ear (principal); H66.91 Otitis media, unspecified, right ear; H91.91 Unspecified hearing loss, right ear
CPT/HCPCS: 93005; 85025; 80048; 36415; 82947 ×3; 69436; 69705; J2704; J2003; J2250; J3010; J1100; J2405; J7030